=== PATIENT | male | born 1950 | race Caucasian/White ===

== ENCOUNTER 2018-02-05 14:06 | Observation (INO) | payer MEDICARE, OTHER ==
[~2018-02-05] VITALS: Ht 182.9 cm; Wt 109.0 kg
[2018-02-05 14:15] VITALS: BP 200/89; PULSE 60; RESP 22; TEMP 98.2; O2SAT 98
--- NOTE | 2018-02-05 15:17 | RADRPT ---
EXAM DATE/TIME: 02/05/2018 14:42 [facility] COMPARISON: No previous studies available for comparison. INDICATIONS : Right arm pain. Patient fell today. MEDICAL HISTORY : None. SURGICAL HISTORY : None. ENCOUNTER: Initial ACUITY: 1 day PAIN SCORE: 10/10 LOCATION: Right elbow. FINDINGS: Two view examination of the right humerus demonstrates dislocation of both the radius and the ulna at the elbow joint with avulsion fracture is noted adjacent to the distal humerus. CONCLUSION: 1. Complete dislocation of both the radius and ulna at the elbow joint. Jackson Aaron MD on February 05, 2018 at 15:14 Board Certified Radiologist. This report was verified electronically.
--- NOTE | 2018-02-05 15:18 | RADRPT ---
EXAM DATE/TIME: 02/05/2018 14:42 This report includes an Addendum and supersedes previous reports for this exam. [facility] COMPARISON: No previous studies available for comparison. INDICATIONS : Right elbow pain. Patient fell today. MEDICAL HISTORY : None. SURGICAL HISTORY : None. ENCOUNTER: Initial ACUITY: 1 day PAIN SCORE: 10/10 LOCATION: Right elbow. FINDINGS: There is dislocation of both radius and ulna at the elbow joint avulsion fracture humerus. No definit e acute fracture identified in the forearm. CONCLUSION: 1. No acute fracture seen in the forearm. Dislocation at the right elbow. Jackson Aaron MD on February 05, 2018 at 15:15 Board Certified Radiologist. This report was verified electronically. ADDENDUM: There is a small avulsion fracture adjacent to the distal humerus, probably from the lateral epicondy les. Jackson Aaron MD on February 05, 2018 at 16:44 Board Certified Radiologist. This report was verified electronically.
[2018-02-05] MEDS ORDERED: ONDANSETRON HCL 4 MG/2 ML VIAL IV PUSH ONE ×2 (15:30→20:15)
[2018-02-05] MEDS ORDERED: MORPHINE SULFATE 4 MG/ML INJ IV PUSH ONE (15:30)
[2018-02-05] MEDS ORDERED: ETOMIDATE 20 MG/10 ML VIAL IV PUSH ONE (15:30)
--- NOTE | 2018-02-05 15:34 | PD ---
HPI Chief Complaint: Injury Time Seen by Provider: 15:26 Travel History International Travel<30 days: No Contact w/Intl Traveler<30days: No Traveled to known affect area: No History of Present Illness HPI 68-year-old male complains of right arm pain. Patient states that he fell this afternoon. Patient denies loss of consciousness. Patient denies any headache or neck pain. Patient denies any chest pain or shortness of breath. Patient denies abdominal pain. Patient complaint is severe sharp pain localized the right arm especially the right elbow. Patient denies any pain radiation. Patient denies any other injury. On a scale of 1-10 the pain is a 10. Patient has history hypertension. PFSH Past Medical History Hx Anticoagulant Therapy: Yes Heart Rhythm Problems: Yes Cardiovascular Problems: Yes High Cholesterol: Yes Immune Disorder: Yes Tetanus Vaccination: > 5 Years Past Surgical History Surgical History: No Previous Surgery Social History Alcohol Use: No Tobacco Use: No Substance Use: No Allergies-Medications (Allergen,Severity, Reaction): Coded Allergies: No Known Allergies (Unverified , 02/05/18) Review of Systems General / Constitutional: No: Fever Eyes: No: Visual changes HENT: No: Headaches Cardiovascular: No: Chest Pain or Discomfort Respiratory: No: Shortness of Breath Gastrointestinal: No: Abdominal Pain Genitourinary: No: Dysuria Musculoskeletal: Positive: Pain Skin: No Rash Neurologic: No: Weakness Psychiatric: No: Depression Endocrine: No: Polydipsia Hematologic/Lymphatic: No: Easy Bruising Physical Exam Narrative GENERAL: Well-nourished, well-developed patient. SKIN: Focused skin assessment warm/dry. HEAD: Normocephalic. EYES: No scleral icterus. No injection or drainage. NECK: Supple, trachea midline. No JVD or lymphadenopathy. CARDIOVASCULAR: Regular rate and rhythm without murmurs, gallops, or rubs. RESPIRATORY: Breath sounds equal bilaterally. No accessory muscle use. GASTROINTESTINAL: Abdomen soft, non-tender, nondistended. MUSCULOSKELETAL: Patient has soft tissue swelling moderate to severe diffuse tenderness of the right elbow. Right elbow in extension position. Unable to flex elbow. Sensory motor function distally intact. Good radial pulses. Patient has small abrasion medial epicondyle area. BACK: Nontender without obvious deformity. No CVA tenderness. Neurologic exam: Patient awake alert oriented 3. No obvious focal neurological deficit. Data Data Last Documented VS Vital Signs Date Time Temp Pulse Resp B/P (MAP) Pulse Ox O2 Delivery O2 Flow Rate FiO2 02/05/18 14:15 98.2 60 22 200/89 (126) 98 Orders Orders Humerus (Min 2vws) (02/05/18 ) Forearm (2vws) (02/05/18 14:48) Electrocardiogram (02/05/18 15:29) Complete Blood Count With Diff (02/05/18 15:29) Comprehensive Metabolic Panel (02/05/18 15:29) Prothrombin Time / Inr (Pt) (02/05/18 15:29) Act Partial Throm Time (Ptt) (02/05/18 15:29) Urinalysis - C+S If Indicated (02/05/18 15:29) Chest, Single Ap (02/05/18 15:29) Iv Access Insert/Monitor (02/05/18 15:29) Ecg Monitoring (02/05/18 15:29) Oximetry (02/05/18 15:29) Type And Screen (02/05/18 15:29) Sodium Chlor 0.9% 1000 Ml Inj (Ns 1000 M (02/05/18 15:30) Etomidate Inj (Amidate Inj) (02/05/18 15:30) Morphine Inj (Morphine Inj) (02/05/18 15:30) Ondansetron Inj (Zofran Inj) (02/05/18 15:30) Midazolam Inj (Versed Inj) (02/05/18 16:06) Elbow, Limited (Ap&Lat) (02/05/18 16:20) Midazolam Inj (Versed Inj) (02/05/18 16:30) Splint Or Brace Apply/Monitor (02/05/18 16:27) Labs Laboratory Tests Test 02/05/18 15:46 White Blood Count 17.2 TH/MM3 Red Blood Count 5.00 MIL/MM3 Hemoglobin 14.4 GM/DL Hematocrit 43.3 % Mean Corpuscular Volume 86.6 FL Mean Corpuscular Hemoglobin 28.7 PG Mean Corpuscular Hemoglobin Concent 33.2 % Red Cell Distribution Width 13.9 % Platelet Count 233 TH/MM3 Mean Platelet Volume 9.7 FL Neutrophils (%) (Auto) 85.6 % Lymphocytes (%) (Auto) 8.8 % Monocytes (%) (Auto) 5.3 % Eosinophils (%) (Auto) 0.1 % Basophils (%) (Auto) 0.2 % Neutrophils # (Auto) 14.7 TH/MM3 Lymphocytes # (Auto) 1.5 TH/MM3 Monocytes # (Auto) 0.9 TH/MM3 Eosinophils # (Auto) 0.0 TH/MM3 Basophils # (Auto) 0.0 TH/MM3 CBC Comment DIFF FINAL Differential Comment MDM Medical Decision Making Medical Screen Exam Complete: Yes Emergency Medical Condition: Yes Interpretation(s) Last Impressions Radius/Ulna X-Ray 02/05/18 1448 Signed Impressions: Service Date/Time: January 14:42 - CONCLUSION: 1. No acute fracture seen in the forearm. Dislocation at the right elbow. Jackson Aaron MD Humerus X-Ray 02/05/18 0000 Signed Impressions: Service Date/Time: January 14:42 - CONCLUSION: 1. Complete dislocation of both the radius and ulna at the elbow joint. Jackson Aaron MD Differential Diagnosis Differential diagnosis including fracture, dislocation. Narrative Course 68-year-old male with right elbow injury. Status post fall. Normal saline solution 1 25 cc an hour. Morphine 4 mg IV. Zofran 4 mg IV. Conscious sedation for right elbow dislocation reduction. I spoke with orthopedist on- call, Dr. De La Rosa. Advised for patient to follow with orthopedics at home. Critical Care Narrative Aggregate critical care time was 60 minutes. Time to perform other separately billable procedures was not included in the critical care time. My time did not include minutes spent treating any other patients simultaneously or on activities that did not directly contribute to the patient's treatment. The services I provided to this patient were to treat and/or prevent clinically significant deterioration that could result in: Disability I provided critical care services requiring my management, as noted below: Chart data review, documentation time, medication orders and management, vital sign assessments/reviewing monitor data, ordering and reviewing lab tests, ordering and interpreting/reviewing x-rays and diagnostic studies, care of the patient and discussion of the patient with the admitting physicians. Procedures Procedure Narrative Right elbow dislocation reduction procedure: Patient was given IV morphine, Versed, etomidate. Patient was well sedated. Reduction procedure done with gentle traction pressure. Right elbow dislocation was reduced. Postprocedure x-ray obtained. Good alignment. Posterior long-arm splint and sling applied. Neurovascular intact postprocedure. Conscious sedation procedure: Patient was connected to court monitor and pulse oximetry monitor. O2 4 L nasal cannula given. Patient was given morphine 2 mg IV, etomidate 10 mg IV, Versed 5 mg IV. Patient was well sedated. Reduction procedure done. Patient recovered uneventfully. Diagnosis Primary Impression: Dislocation of right elbow Qualified Codes: S53.104A - Unspecified dislocation of right ulnohumeral joint , initial encounter Additional Impression: Avulsion fracture of lateral epicondyle of humerus Qualified Codes: S42.431A - Displaced fracture (avulsion) of lateral epicondyle of right humerus, initial encounter for closed fracture Patient Instructions: General Instructions Additional Instructions: Take medication as directed for pain. Follow-up with an orthopedist physician at home. Med/Other Pt SpecificInfo: Prescription(s) given Scripts Hydrocodone-Acetaminophen ([place]) 5 Mg-325 Mg Tab 1 TAB PO Q6H Y for PAIN, #40 TAB 0 Refills Prov: Jamari Walker MD 02/05/18 Tramadol (Ultram) 50 Mg Tab 50 MG PO Q6H Y for PAIN, #40 TAB 0 Refills Prov: Jamari Walker MD 02/05/18 Disposition: 01 DISCHARGE HOME Condition: Stable Jamari Walker MD Feb 05, 2018 15:34
[2018-02-05] MEDS: SODIUM CHLOR 0.9% 1000 ML INJ 1,000 ML IV SCH (15:59)
[2018-02-05] MEDS ORDERED: MIDAZOLAM HCL 5 MG/ML VIAL (1 ML) ONE (16:06)
[2018-02-05 16:09] LABS: AUTOMATED NEUTROPHIL # 14.7 TH/MM3 (1.8-7.7); BASOPHIL % 0.2 % (0.0-2.0); EOSINOPHIL % 0.1 % (0.0-4.0); HEMATOCRIT 43.3 % (39.0-51.0); HEMOGLOBIN 14.4 GM/DL (13.0-17.0); LYMPH % 8.8 % (9.0-44.0); LYMPHOCYTE # 1.5 TH/MM3 (1.0-4.8); MEAN CELL VOLUME 86.6 FL (80.0-100.0); MEAN CORPUSCULAR HEMOGLOBIN 28.7 PG (27.0-34.0); MEAN CORPUSCULAR HGB CONC 33.2 % (32.0-36.0); MEAN PLATELET VOLUME 9.7 FL (7.0-11.0); MONO % 5.3 % (0.0-8.0); MONOCYTE # 0.9 TH/MM3 (0-0.9); NEUT % 85.6 % (16.0-70.0); PLATELET COUNT 233 TH/MM3 (150-450); RED CELL DISTRIBUTION WIDTH 13.9 % (11.6-17.2); WHITE BLOOD COUNT 17.2 TH/MM3 (4.0-11.0)
[2018-02-05 16:28] LABS: INTERNATIONAL NORMALIZED RATIO 1.1 RATIO; PROTHROMBIN TIME - PATIENT 10.7 SEC (9.8-11.6)
[2018-02-05 16:30] LABS: ALBUMIN 3.7 GM/DL (3.4-5.0); AST (GOT) 23 U/L (15-37); BICARBONATE 22.8 MEQ/L (21.0-32.0); BLOOD UREA NITROGEN 19 MG/DL (7-18); CALCIUM 8.9 MG/DL (8.5-10.1); CHLORIDE 107 MEQ/L (98-107); CREATININE 1.14 MG/DL (0.60-1.30); GLOMERULAR FILTRATION RATE 64 ML/MIN (>89); GLUCOSE,RANDOM 118 MG/DL (74-106); SODIUM (NA) 142 MEQ/L (136-145)
[2018-02-05] MEDS ORDERED: MIDAZOLAM HCL 5 MG/ML VIAL (1 ML) IV ONE (16:30)
[2018-02-05 16:34] LABS: ALKALINE PHOSPHATASE 86 U/L (45-117); ALT (GPT) 30 U/L (12-78); TOTAL BILIRUBIN ADULT 0.7 MG/DL (0.2-1.0); TOTAL PROTEIN 7.2 GM/DL (6.4-8.2)
--- NOTE | 2018-02-05 16:40 | RADRPT ---
EXAM DATE/TIME: 02/05/2018 16:08 [facility] COMPARISON: FOREARM RIGHT (2VWS), February 05, 2018, 14:42. INDICATIONS : Post reduction right elbow, fell MEDICAL HISTORY : Dislocated right elbow SURGICAL HISTORY : None. ENCOUNTER: Initial ACUITY: 1 day PAIN SCORE: Non-responsive. LOCATION: Right Elbow FINDINGS: Interval reduction with anatomic alignment of the radius and ulna. Redemonstration of small of avulsi on fracture of the distal humerus. No additional acute fractures. Remainder of exam is unchanged. CONCLUSION: 1. Interval reduction with anatomic alignment of the radius and normal. 2. Small avulsion fracture of distal humerus. Parviz Vela MD on February 05, 2018 at 16:36 Board Certified Radiologist. This report was verified electronically.
[2018-02-05] MEDS ORDERED: TRAM50 PO (16:59)
[2018-02-05] MEDS ORDERED: NORC5TAB PO (16:59)
[2018-02-05 18:21] VITALS: O2SAT 95
[2018-02-05 19:13] VITALS: BP 166/99; PULSE 82; RESP 18; O2SAT 97
[2018-02-05] MEDS ORDERED: ONDANSETRON HCL 4 MG/2 ML VIAL IV ONE ×2 (19:15→20:15)
[2018-02-05] MEDS ORDERED: ONDA4TAB7 SL (20:15)
--- NOTE | 2018-02-05 20:15 | PD ---
Data Data Last Documented VS Vital Signs Date Time Temp Pulse Resp B/P (MAP) Pulse Ox O2 Delivery O2 Flow Rate FiO2 02/05/18 22:48 53 16 148/76 (100) 96 Room Air 02/05/18 19:13 2.00 02/05/18 14:15 98.2 Orders Orders Humerus (Min 2vws) (02/05/18 ) Forearm (2vws) (02/05/18 14:48) Electrocardiogram (02/05/18 15:29) Complete Blood Count With Diff (02/05/18 15:29) Comprehensive Metabolic Panel (02/05/18 15:29) Prothrombin Time / Inr (Pt) (02/05/18 15:29) Act Partial Throm Time (Ptt) (02/05/18 15:29) Urinalysis - C+S If Indicated (02/05/18 15:29) Iv Access Insert/Monitor (02/05/18 15:29) Ecg Monitoring (02/05/18 15:29) Oximetry (02/05/18 15:29) Type And Screen (02/05/18 15:29) Sodium Chlor 0.9% 1000 Ml Inj (Ns 1000 M (02/05/18 15:30) Etomidate Inj (Amidate Inj) (02/05/18 15:30) Morphine Inj (Morphine Inj) (02/05/18 15:30) Ondansetron Inj (Zofran Inj) (02/05/18 15:30) Midazolam Inj (Versed Inj) (02/05/18 16:06) Elbow, Limited (Ap&Lat) (02/05/18 16:20) Midazolam Inj (Versed Inj) (02/05/18 16:30) Splint Or Brace Apply/Monitor (02/05/18 16:27) Fiberglass Splint Elbow Adult (02/05/18 ) Sling Cradle Arm (02/05/18 ) Ondansetron Inj (Zofran Inj) (02/05/18 19:15) Ondansetron Inj (Zofran Inj) (02/05/18 20:15) Diet Regular Basic (02/06/18 Breakfast) Ondansetron Inj (Zofran Inj) (02/05/18 20:15) Place In Observation (02/05/18 ) Vital Signs (Adult) Q4H (02/05/18 22:46) Activity Oob Ad Flower (02/05/18 22:46) Intake + Output LUNA.QSHIFT (02/05/18 22:46) Place In Observation (02/05/18 ) Sodium Chloride 0.9% Flush (Ns Flush) (02/05/18 23:00) Sodium Chloride 0.9% Flush (Ns Flush) (02/06/18 09:00) Ondansetron Inj (Zofran Inj) (02/05/18 23:00) Basic Metabolic Panel (Bmp) (02/06/18 06:00) Complete Blood Count With Diff (02/06/18 06:00) Scd Bilateral/Knee High LUNA.BID (02/05/18 22:46) Acetamin-Hydrocod 325-5 Mg ([place] 5-325 (02/05/18 23:00) Admit Order (Ed Use Only) (02/05/18 ) Labs Laboratory Tests Test 02/05/18 15:46 White Blood Count 17.2 TH/MM3 Red Blood Count 5.00 MIL/MM3 Hemoglobin 14.4 GM/DL Hematocrit 43.3 % Mean Corpuscular Volume 86.6 FL Mean Corpuscular Hemoglobin 28.7 PG Mean Corpuscular Hemoglobin Concent 33.2 % Red Cell Distribution Width 13.9 % Platelet Count 233 TH/MM3 Mean Platelet Volume 9.7 FL Neutrophils (%) (Auto) 85.6 % Lymphocytes (%) (Auto) 8.8 % Monocytes (%) (Auto) 5.3 % Eosinophils (%) (Auto) 0.1 % Basophils (%) (Auto) 0.2 % Neutrophils # (Auto) 14.7 TH/MM3 Lymphocytes # (Auto) 1.5 TH/MM3 Monocytes # (Auto) 0.9 TH/MM3 Eosinophils # (Auto) 0.0 TH/MM3 Basophils # (Auto) 0.0 TH/MM3 CBC Comment DIFF FINAL Differential Comment Prothrombin Time 10.7 SEC Prothromb Time International Ratio 1.1 RATIO Activated Partial Thromboplast Time 23.7 SEC Blood Urea Nitrogen 19 MG/DL Creatinine 1.14 MG/DL Random Glucose 118 MG/DL Total Protein 7.2 GM/DL Albumin 3.7 GM/DL Calcium Level 8.9 MG/DL Alkaline Phosphatase 86 U/L Aspartate Amino Transf (AST/SGOT) 23 U/L Alanine Aminotransferase (ALT/SGPT) 30 U/L Total Bilirubin 0.7 MG/DL Sodium Level 142 MEQ/L Potassium Level 3.4 MEQ/L Chloride Level 107 MEQ/L Carbon Dioxide Level 22.8 MEQ/L Anion Gap 12 MEQ/L Estimat Glomerular Filtration Rate 64 ML/MIN MDM Supervised Visit with ASAD: No Narrative Course Patient trip and fall with elbow fracture dislocation, reduced under procedural sedation by Dr. Walker. Now with persistent nausea vomiting lightheadedness symptoms, ongoing for 6 hours in the ED. Not relieved with medications or food. 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 He is from out of town is going to follow up with orthopedics when he gets back home. At this point recommend keeping observation overnight, discharge in a.m. Diagnosis Primary Impression: Dislocation of right elbow Qualified Codes: S53.104A - Unspecified dislocation of right ulnohumeral joint , initial encounter Additional Impression: Avulsion fracture of lateral epicondyle of humerus Qualified Codes: S42.431A - Displaced fracture (avulsion) of lateral epicondyle of right humerus, initial encounter for closed fracture Patient Instructions: General Instructions Additional Instruction: Take medication as directed for pain. Follow-up with an orthopedist physician at home. Scripts Ondansetron Odt (Ondansetron Odt) 4 Mg Tab 4 MG SL Q8HR Y for Nausea/Vomiting, #15 TAB 0 Refills Prov: Kevin Zepeda MD 02/05/18 Hydrocodone-Acetaminophen ([place]) 5 Mg-325 Mg Tab 1 TAB PO Q6H Y for PAIN, #40 TAB 0 Refills Prov: Jamari Walker MD 02/05/18 Tramadol (Ultram) 50 Mg Tab 50 MG PO Q6H Y for PAIN, #40 TAB 0 Refills Prov: Jamari Walker MD 02/05/18 Disposition: 01 DISCHARGE HOME Condition: Stable Kevin Zepeda MD Feb 05, 2018 20:15
[2018-02-05 22:48] VITALS: BP 148/76; PULSE 53; RESP 16; O2SAT 96
[2018-02-05] MEDS ORDERED: ACETAMINOPHEN/HYDROcodone 325 MG/5 MG TAB PO PRN (23:00)
[2018-02-05] MEDS ORDERED: ONDANSETRON HCL 4 MG/2 ML VIAL IVP PRN (23:00)
[2018-02-05] MEDS ORDERED: SODIUM CHLORIDE 0.9% FLUSH 10 ML FLUSH IV FLUSH PRN (23:00)
[2018-02-05 23:41] VITALS: BP 148/76; PULSE 52; RESP 18; O2SAT 98
[2018-02-06] MEDS ORDERED: POTASSIUM CHLORIDE 20 MEQ CONTROLLED RELEASE TAB PO ONE (01:30)
--- NOTE | 2018-02-06 01:35 | HHI.HP ---
[facility] Primary Care Physician Unknown Admission Diagnosis Elbow fracture dislocation, nausea vomiting Diagnoses: Travel History International Travel<30 Days: No Contact w/Intl Traveler <30 Da: No Traveled to Known Affected Are: No History of Present Illness 68-year-old male with a past medical history significant for hypertension presents to the emergency department for evaluation of a fall. The patient reports he was playing pickle ball when he tripped and fell on his right elbow. The patient sustained a dislocation of his right elbow with a small avulsion fracture of the distal humerus. The elbow was reduced successfully and he was cleared to go home to follow-up with orthopedic surgery at his home in [place] when he became severely nauseated, dizzy with associated emesis. The patient's nausea/vomiting has not resolved. Review of Systems Except as stated in HPI: all other systems reviewed are Neg Past Family Social History Past Medical History Hypertension Past Surgical History Right knee Reported Medications Reported Meds & Active Scripts Active Ondansetron Odt 4 Mg Tab 4 Mg SL Q8HR PRN [place] (Hydrocodone-Acetaminophen) 5 Mg-325 Mg Tab 1 Tab PO Q6H PRN Ultram (Tramadol HCl) 50 Mg Tab 50 Mg PO Q6H PRN Allergies: Coded Allergies: No Known Allergies (Unverified , 02/05/18) Family History Father of CVA at age 52 Social History Rare alcohol. Denies tobacco and illicit drugs Physical Exam Vital Signs Vital Signs Date Time Temp Pulse Resp B/P (MAP) Pulse Ox O2 Delivery O2 Flow Rate FiO2 02/05/18 23:41 52 18 148/76 (100) 98 Room Air 02/05/18 22:48 53 16 148/76 (100) 96 Room Air 02/05/18 19:13 82 18 166/99 (121) 97 Nasal Cannula 2.00 02/05/18 18:21 95 2.00 02/05/18 14:15 98.2 60 22 200/89 (126) 98 Physical Exam GENERAL: Elderly, male lying in bed SKIN: No rashes, ecchymoses or lesions. Cool and dry. HEAD: Atraumatic. Normocephalic. No temporal or scalp tenderness. EYES: Pupils equal round and reactive. Extraocular motions intact. No scleral icterus. No injection or drainage. ENT: Nose without bleeding, purulent drainage or septal hematoma. Throat without erythema, tonsillar hypertrophy or exudate. Uvula midline. Airway patent. NECK: Trachea midline. No JVD or lymphadenopathy. Supple, nontender, no meningeal signs. CARDIOVASCULAR: Regular rate and rhythm without murmurs, gallops, or rubs. RESPIRATORY: Clear to auscultation. Breath sounds equal bilaterally. No wheezes , rales, or rhonchi. GASTROINTESTINAL: Abdomen soft, non-tender, nondistended. No hepato-splenomegaly , or palpable masses. No guarding. MUSCULOSKELETAL: Right upper extremity in splint, neurovascularly intact. No calf tenderness. NEUROLOGICAL: Awake and alert. Cranial nerves II through XII intact. Motor and sensory grossly within normal limits. Normal speech. Laboratory Laboratory Tests Test 02/05/18 15:46 White Blood Count 17.2 Red Blood Count 5.00 Hemoglobin 14.4 Hematocrit 43.3 Mean Corpuscular Volume 86.6 Mean Corpuscular Hemoglobin 28.7 Mean Corpuscular Hemoglobin Concent 33.2 Red Cell Distribution Width 13.9 Platelet Count 233 Mean Platelet Volume 9.7 Neutrophils (%) (Auto) 85.6 Lymphocytes (%) (Auto) 8.8 Monocytes (%) (Auto) 5.3 Eosinophils (%) (Auto) 0.1 Basophils (%) (Auto) 0.2 Neutrophils # (Auto) 14.7 Lymphocytes # (Auto) 1.5 Monocytes # (Auto) 0.9 Eosinophils # (Auto) 0.0 Basophils # (Auto) 0.0 CBC Comment DIFF FINAL Differential Comment Prothrombin Time 10.7 Prothromb Time International Ratio 1.1 Activated Partial Thromboplast Time 23.7 Blood Urea Nitrogen 19 Creatinine 1.14 Random Glucose 118 Total Protein 7.2 Albumin 3.7 Calcium Level 8.9 Alkaline Phosphatase 86 Aspartate Amino Transf (AST/SGOT) 23 Alanine Aminotransferase (ALT/SGPT) 30 Total Bilirubin 0.7 Sodium Level 142 Potassium Level 3.4 Chloride Level 107 Carbon Dioxide Level 22.8 Anion Gap 12 Estimat Glomerular Filtration Rate 64 Result Diagram: 02/05/18 1546 02/05/18 1546 Caprini VTE Risk Assessment Caprini VTE Risk Assessment: Mod/High Risk (score >= 2) Caprini Risk Assessment Model Point Value = 1 Point Value = 2 Point Value = 3 Point Value = 5 Age 41-60 Minor surgery BMI > 25 kg/m2 Swollen legs Varicose veins or History of unexplained or recurrent spontaneous Oral contraceptives or hormone replacement Sepsis (< 1 month) Serious lung disease, including pneumonia (< 1 month) Abnormal pulmonary function Acute myocardial infarction Congestive heart failure (< 1 month) History of inflammatory bowel disease Medical patient at bed rest Age 61-74 Arthroscopic surgery Major open surgery (> 45 min) Laparoscopic surgery (> 45 min) Malignancy Confined to bed (> 72 hours) Immobilizing plaster cast Central venous access Age >= 75 History of VTE Family history of VTE Factor V Leiden Prothrombin [id number] Lupus anticoagulant Anticardiolipin antibodies Elevated serum homocysteine Heparin-induced thrombocytopenia Other congenital or acquired thrombophilia Stroke (< 1 month) Elective arthroplasty Hip, pelvis, or leg fracture Acute spinal cord injury (< 1 month) Prophylaxis Regimen Total Risk Factor Score Risk Level Prophylaxis Regimen 0-1 Low Early ambulation 2 Moderate Order ONE of the following: *Sequential Compression Device (SCD) *Heparin 5000 units SQ BID 3-4 Higher Order ONE of the following medications: *Heparin 5000 units SQ TID *Enoxaparin/Lovenox 40 mg SQ daily (WT < 150 kg, CrCl > 30 mL/min) *Enoxaparin/Lovenox 30 mg SQ daily (WT < 150 kg, CrCl > 10-29 mL/min) *Enoxaparin/Lovenox 30 mg SQ BID (WT < 150 kg, CrCl > 30 mL/min) AND/OR *Sequential Compression Device (SCD) 5 or more Highest Order ONE of the following medications: *Heparin 5000 units SQ TID (Preferred with Epidurals) *Enoxaparin/Lovenox 40 mg SQ daily (WT < 150 kg, CrCl > 30 mL/min) *Enoxaparin/Lovenox 30 mg SQ daily (WT < 150 kg, CrCl > 10-29 mL/min) *Enoxaparin/Lovenox 30 mg SQ BID (WT < 150 kg, CrCl > 30 mL/min) AND *Sequential Compression Device (SCD) Assessment and Plan Assessment and Plan Assessment/plan: 1. Intractable nausea/vomiting/dizziness Likely secondary to sedation given in the ER for reduction of elbow dislocation IV fluids Zofran Advance diet as tolerated Anticipate discharge in the a.m. if symptoms resolve 2. Avulsion fracture of right distal humerus Splint in place Patient will follow-up with orthopedic surgeon in his hometown of [facility] for pain FEN Regular diet Electrolytes: Status post by mouth potassium Kavitha Urena MD Feb 06, 2018 01:35
[2018-02-06] MEDS: SODIUM CHLOR 0.9% 1000 ML INJ 1,000 ML IV SCH ×2 (02:58→07:30)
[2018-02-06 03:26] LABS: BILIRUBIN, URINE NEG (NEG); BLOOD, URINE TRACE (NEG); GLUCOSE,URINE NEG (NEG); KETONE, URINE 10 mg/dL (NEG); MUCUS URINE FEW /lpf (OCC); NITRITE,URINE NEG (NEG); URINE COLOR YELLOW (YELLW/STRAW); URINE LEUKOCYTE ESTERASE NEG (NEG)
[2018-02-06 07:59] VITALS: BP 155/90; PULSE 58; RESP 20; TEMP 98.2; O2SAT 96
[2018-02-06] MEDS ORDERED: HYDR-3516 PO (08:28)
[2018-02-06] MEDS ORDERED: ONDA4TAB7 SL (08:28)
--- NOTE | 2018-02-06 08:29 | HHI.DCPOC ---
Discharge Care Plan Diagnosis: (1) Nausea and vomiting after administration of anesthetic agent (2) Avulsion fracture of lateral epicondyle of humerus (3) Dislocation of right elbow Your Health Problems Are: Difficulty with ADL Inflammation Swelling Goals to Promote Your Health * To prevent worsening of your condition and complications * To maintain your health at the optimal level Directions to Meet Your Goals Take your medications as prescribed Follow your dietary instruction Follow activity as directed Keep your appointments as scheduled Take your immunizations and boosters as scheduled If your symptoms worsen call your PCP, if no PCP go to Urgent Care Center or Emergency Room Smoking is Dangerous to Your Health. Avoid second hand smoke Call the 24-hour hour crisis hotline for domestic abuse at Javid Esqueda Feb 06, 2018 08:29
[2018-02-06 08:37] LABS: AUTOMATED NEUTROPHIL # 7.4 TH/MM3 (1.8-7.7); BASOPHIL # 0.1 TH/MM3 (0-0.2); BASOPHIL % 0.5 % (0.0-2.0); EOSINOPHIL % 0.3 % (0.0-4.0); HEMATOCRIT 41.1 % (39.0-51.0); HEMOGLOBIN 13.8 GM/DL (13.0-17.0); LYMPHOCYTE # 1.4 TH/MM3 (1.0-4.8); MEAN CELL VOLUME 86.5 FL (80.0-100.0); MEAN CORPUSCULAR HGB CONC 33.5 % (32.0-36.0); MEAN PLATELET VOLUME 9.7 FL (7.0-11.0); MONOCYTE # 0.9 TH/MM3 (0-0.9); NEUT % 76.2 % (16.0-70.0); PLATELET COUNT 219 TH/MM3 (150-450); RED BLOOD COUNT 4.75 MIL/MM3 (4.50-5.90); WHITE BLOOD COUNT 9.7 TH/MM3 (4.0-11.0)
[2018-02-06] MEDS ORDERED: SODIUM CHLORIDE 0.9% FLUSH 10 ML FLUSH IV FLUSH SCH (09:00)
[2018-02-06 09:05] LABS: BICARBONATE 20.8 MEQ/L (21.0-32.0); CALCIUM 9.3 MG/DL (8.5-10.1); CREATININE 1.06 MG/DL (0.60-1.30)
--- NOTE | 2018-02-06 10:58 | HHI.PR ---
Subjective Remarks Follow-up visit status post fall, avulsion fracture of right distal humerus with splint in place, nausea vomiting secondary to medication administration. Patient seen and examined today. Reports he is doing well. States discomfort is better. Denies any nausea, vomiting. States he he has been feeling better since last night. Denies pain and discomfort. Denies SOB/ dyspnea. Denies chest pain, palpitations, headaches, dizziness. Denies fevers, chills, n/v/d. Denies hematuria, dysuria. Objective Vitals Vital Signs Date Time Temp Pulse Resp B/P (MAP) Pulse Ox O2 Delivery O2 Flow Rate FiO2 02/06/18 07:59 98.2 58 20 155/90 (111) 96 02/06/18 05:03 21 02/06/18 03:18 02/05/18 23:41 52 18 148/76 (100) 98 Room Air 02/05/18 22:48 53 16 148/76 (100) 96 Room Air 02/05/18 19:13 82 18 166/99 (121) 97 Nasal Cannula 2.00 02/05/18 18:21 95 Nasal Cannula 2.00 02/05/18 18:21 95 2.00 02/05/18 14:15 98.2 60 22 200/89 (126) 98 I/O 02/05/18 02/05/18 02/05/18 02/06/18 02/06/18 02/06/18 07:00 15:00 23:00 07:00 15:00 23:00 Intake Total 0 ml Balance 0 ml Intake Oral 0 ml # Voids 1 # Bowel Movements 0 Result Diagram: 02/06/1818 02/06/18 0818 Imaging Last Impressions Elbow X-Ray 02/05/18 1620 Signed Impressions: Service Date/Time: January 16:08 - CONCLUSION: 1. Interval reduction with anatomic alignment of the radius and normal. 2. Small avulsion fracture of distal humerus. Parviz Vela MD Radius/Ulna X-Ray 02/05/18 1448 Signed Impressions: Service Date/Time: January 14:42 - CONCLUSION: 1. No acute fracture seen in the forearm. Dislocation at the right elbow. Jackson Aaron MD ADDENDUM: There is a small avulsion fracture adjacent to the distal humerus, probably from the lateral epicondyles. Jackson Aaron MD Humerus X-Ray 02/05/18 0000 Signed Impressions: Service Date/Time: January 14:42 - CONCLUSION: 1. Complete dislocation of both the radius and ulna at the elbow joint. Jackson Aaron MD Objective Remarks GENERAL: This is a well-nourished, well-developed patient, in no apparent distress. SKIN: Warm and dry. HEENT: Normocephalic. Pupils equal round and reactive. Nose without bleeding. Airway patent. NECK: Trachea midline. CARDIOVASCULAR: Regular rate and rhythm without murmurs, gallops, or rubs. RESPIRATORY: Clear to auscultation. Breath sounds equal bilaterally. No wheezes , rales, or rhonchi. GASTROINTESTINAL: Abdomen soft, non-tender, nondistended. Bowel Sounds normoactive x4. MUSCULOSKELETAL: Extremities without clubbing, cyanosis, or edema. Right upper extremity splint in place, pulses palpable, fingers warm and movement wnl. No cyanosis noted. NEUROLOGICAL: Awake and alert. Oriented to time, place, person. No focal neuro deficit. Normal speech. A/P Problem List: (1) Nausea and vomiting after administration of anesthetic agent ICD Code: T88.59XA - Other complications of anesthesia, initial encounter; R11.2 - Nausea with vomiting, unspecified (2) Avulsion fracture of lateral epicondyle of humerus ICD Code: S42.433A - Displaced fracture (avulsion) of lateral epicondyle of unspecified humerus, initial encounter for closed fracture Status: Acute (3) Dislocation of right elbow ICD Code: S53.104A - Unspecified dislocation of right ulnohumeral joint, initial encounter Status: Acute Assessment and Plan Intractable nausea/vomiting/dizziness - Likely secondary to sedation given in the ER for reduction of elbow dislocation -IV fluids -Zofran -Advance diet as tolerated -Symptoms has resolved. Avulsion fracture of right distal humerus -Splint in place -Patient will follow-up with orthopedic surgeon in his hometown [facility], but if he is staying for more than 2 weeks he needs to follow-up with the local orthopedic surgeon for a visit and possible x-ray -[place] for pain, tramadol FEN Regular diet Electrolytes: Status post by mouth potassium SCDs Discharge patient to home Condition on discharge: Improved Regular Diet as tolerated Ad Flower activity RUE splint and sling, no lifting/ min wt bearing Rx written: [place] 5/325, tramadol 50 mg Follow-up with primary care physician Follow-up with orthopedic doctor Discharge Planning Plan to discharge home today with follow-up with orthopedist. Problem Qualifiers (1) Avulsion fracture of lateral epicondyle of humerus: Qualified Codes: S42.431A - Displaced fracture (avulsion) of lateral epicondyle of right humerus, initial encounter for closed fracture (2) Dislocation of right elbow: Qualified Codes: S53.104A - Unspecified dislocation of right ulnohumeral joint , initial encounter Javid Esqueda Feb 06, 2018 10:58
== END 2018-02-06 11:45 | disposition home or self-care (01) ==
LOC: NEPD 14:06 → NEDA 23:00 → NEPHCDU 02-06 03:06
PROVIDERS: ADMIT Hospitalist; ATTEND Hospitalist
DX: S42.431A Displaced fracture (avulsion) of lateral epicondyle of right humerus, initial encounter for closed fracture (principal); S53.104A Unspecified dislocation of right ulnohumeral joint, initial encounter; R11.2 Nausea with vomiting, unspecified; R42 Dizziness and giddiness; I10 Essential (primary) hypertension; E78.00 Pure hypercholesterolemia, unspecified; M79.601 Pain in right arm; W01.0XXA Fall on same level from slipping, tripping and stumbling without subsequent striking against object, initial encounter
CPT/HCPCS: 24600; 73060; 73070; 73090; 80048; 80053; 81001; 85025; 85610; 85730; 86850; 86900; 86901; 96361; 96374; 96375; 96376; 99152; 99291; G0378; J2250; J2270; J2405; J7030